=== PATIENT | male | born 1935 | race Caucasian/White ===

== ENCOUNTER → 2016-06-21 | Day surgery (SDC) | payer MEDICARE ==
--- NOTE | 2016-06-20 14:40 | HP ---
HISTORY AND PHYSICAL: DATE OF PLANNED ADMISSION AND SURGERY: 06/21/16 HISTORY OF PRESENT ILLNESS: Mr. Moss is a 80-year-old white male who is admitted with a right renal calculus for shockwave lithotripsy and placement of right ureteral stent. Mr. Moss was referred by Dr. Morelos at the [facility] because of asymptomatic microscopic hematuria. There was no associated flank or abdominal pain and no changes in his voiding. No history of gross hematuria. The patient has obstructive voiding symptoms with nocturia up to 4 times a day, frequency every 2 hours with some hesitancy and decreased urinary stream. He has been on tamsulosin for his voiding. Because of history of chronic smoking and the significant degree of microscopic hematuria, he had a CT urogram. The study showed a 1 cm calculus in the right renal pelvis. There were no other abnormalities noted in the kidneys, the collecting systems or the ureters. He had an office cystoscopy which showed no suspicious bladder lesions. Because of the above history and findings and the size of the stone he is admitted for the above procedure. PAST MEDICAL HISTORY AND SYSTEM REVIEW: The patient has multiple medical problems including history of cardiomyopathy status post AICD placement. He is followed by Dr. Moses, weatherization administrator at [facility], and I am including his preoperative cardiology note and clearance. MEDICATIONS: The patient is maintained on the following medications: 1. Namenda 5 mg daily. 2. Aricept 10 mg daily. 3. Folic acid 1 mg daily. 4. Potassium chloride 20 mEq daily. 5. Acetaminophen 500 mg every 6 hours as needed. 6. Sertraline 100 mg daily. 7. Fenofibrate 130 mg daily. 8. Carvedilol 25 mg twice a day. 9. Tamsulosin 0.4 mg daily. 10. Furosemide 20 mg daily. 11. Meclizine 12.5 mg as needed every 6 hours. 12. Combivent inhaler. ALLERGIES: The patient has no allergies to medications. SOCIAL HISTORY: The patient gives history of heavy chronic smoking of one-and-a - half packs per day for the last 65 years. He has element of COPD. PHYSICAL EXAMINATION GENERAL: Morbidly obese white male who looks older than his age. VITAL SIGNS: Blood pressure 140/90, pulse of 70. LUNGS: Clear. HEART: Regular and rhythmic. ABDOMEN: Soft, obese. No CVA tenderness. EXTERNAL GENITALIA: Normal. RECTAL: Exam shows a moderately enlarged but nonsuspicious prostate. IMPRESSION: 1. Microscopic hematuria secondary to a 1 cm non-obstructing calculus in the right renal pelvis with an otherwise normal CT urogram and negative Cystoscopy. 2. Cardiomyopathy with an AICD in place. 3. History of chronic smoking. PLAN: Shockwave lithotripsy of the right renal calculus and the placement of right ureteral stent. I discussed the above plans with the patient. All his questions were answered. CC: Dr. Morelos at the [facility] * [id number]/[facility] #: [id number] [facility]ITAL[facility]
[~2016-06-21] MED LIST: Buffered Lidocaine 1% SYR 3ML* 3 ML/SYR SYRINGE INTRADERM ONE; Buffered Lidocaine 1% SYR 3ML* 3 ML/SYR SYRINGE ONE; Carvedilol TAB* 25 MG PO ONE; Chloroprocaine 2%* 20 ML VIAL ONE; Iohexol 180 (CONTRAST) 10 ML SDV IV ONE; Midazolam* 1 MG/ML 5 ML VIAL (5 MG) ONE; Phenylephrine IV* 40 MCG/ML 10 ML SYRINGE ONE; cefTRIAXone(*) 2 GM ADDV.VIAL IVPB ONE; fentaNYL* 50 MCG/ML 2 ML VIAL (100 MCG VIAL) IV PRN; fentaNYL* 50 MCG/ML 2 ML VIAL (100 MCG VIAL) ONE
--- NOTE | 2016-06-21 09:05 | RAD ---
INDICATION: Right renal calculus COMPARISON: Similar examination June 07, 2016 TECHNIQUE: 2 views the abdomen were obtained. FINDINGS: There are no acute bony or soft tissue abnormalities. The bowel gas pattern is normal. There is a moderate amount of stool overlying the renal shadows. Overlying the right renal collecting system is a 10 mm renal calculus not significantly changed in size or location relative to the previous x-ray. Overlying the left kidney upper and lower poles, there are 2 punctate calcifications also not changed from the previous KUB. Irregular but more elongated calcification seen in the left hemipelvis is more consistent with arterial calcification of the iliac arteries as opposed to renal calculus. IMPRESSION: STABLE BILATERAL COLLECTING SYSTEM CALCIFICATIONS DESCRIBED ABOVE.
[2016-06-21 14:28] VITALS: BP 147/82
--- NOTE | 2016-06-22 04:28 | OP ---
OPERATIVE REPORT: DATE OF OPERATION: 06/21/16 - [facility] DATE OF : 37 SURGEON: Nikolas Truong MD ANESTHESIOLOGIST: Dr. Wei Gill. ANESTHESIA: General. PRE-OP DIAGNOSIS: Right renal calculus (1 cm). POST-OP DIAGNOSIS: Right renal calculus (1 cm). OPERATIVE PROCEDURE: Shockwave lithotripsy of right renal calculus (1 cm), Cystoscopy, right retrograde pyelography, and placement of right ureteral stent (6- [place]). INDICATION FOR PROCEDURE: Mr. Moss is a 80-year-old white male who is a chronic heavy smoker and who was worked up for microscopic hematuria and was found to have a 1 cm calculus in the right renal pelvis. No other abnormalities were noted. Because of the above history and finding, the above procedure was advised and accepted. PATHOLOGY: Preoperative KUB and fluoroscopy both showed a 1 cm calculus in the area of the renal pelvis. 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 Examination of the bladder showed moderate trabeculations, but no suspicious lesions. Right retrograde pyelography showed no hydronephrosis. DESCRIPTION OF PROCEDURE: After successful general anesthesia, the patient was placed in the supine position on the shockwave lithotripsy table. The right renal calculus was visualized on fluoroscopy and the position of the patient and of the generator were adjusted to have the stones in the focus of the shockwaves. A total of 2,400 shocks were then delivered at a rate of 90 shocks per minute. A 2- minute break was taken after the initial 200 shocks. The proper positioning and fragmentation of the stone were monitored periodically. At 2,400 shocks, the stone was still visible. It seems to have been broken in half, but not a full fragmentation noted. The patient was then placed in the lithotomy position. He was prepped and draped for a cystoscopy. Cystoscopy was performed and the urethral stricture noted. The urethra was sequentially dilated with the cystoscope to 22 [place]. Bladder was inspected. Right retrograde pyelography was then performed and a size 6-[place] stent was then placed with the proximal end in an upper pole calyx and the distal end inside the bladder. A size 16-[place] Leon catheter was then placed. The patient tolerated the procedure well and left the operating room in good condition. The plan is to obtain a KUB on the patient's visit next week. Will decide regarding if any additional treatments needed depending upon the degree of fragmentation of the stone. CC: Dr. Ethan Morelos, [facility] [place]* [id number]/[facility] #: [id number] MTDD
== END | disposition home or self-care (01) ==
LOC: OR 08:32
PROVIDERS: ATTEND Urology
DX: N20.0 Calculus of kidney (principal); I42.9 Cardiomyopathy, unspecified; Z95.810 Presence of automatic (implantable) cardiac defibrillator; J44.9 Chronic obstructive pulmonary disease, unspecified; Z87.891 Personal history of nicotine dependence; M19.90 Unspecified osteoarthritis, unspecified site; N40.1 Benign prostatic hyperplasia with lower urinary tract symptoms; R35.1 Nocturia; R35.0 Frequency of micturition; R39.11 Hesitancy of micturition; R39.12 Poor urinary stream; E66.01 Morbid (severe) obesity due to excess calories
CPT/HCPCS: 74000; A9270-GY; C1876; J0696; J2250; J2400; J3010